=== PATIENT | male | born 1950 | race Caucasian/White ===

== ENCOUNTER 2017-10-03 20:19 | Day surgery (SDC) | payer MEDICARE ==
[~2017-10-03] VITALS: Ht 172.7 cm; Wt 97.5 kg
[~2017-10-03 20:19] MED LIST: ALBU8.5H IH; CARV6.2574 PO; CLOP75TA43 PO; GABA-549 PO; KET10 PO; MIRT-20 PO; ROSU20TA23 PO; VENL37.594 PO
--- NOTE | 2017-10-03 20:30 | ER Report ---
History and Physical Time Seen By MD: 20:28 HPI/ROS CHIEF COMPLAINT: Foreign body HISTORY OF PRESENT ILLNESS: This is a 67-year-old male who presents to the emergency department for foreign body in his esophagus. Patient states that about 2 hours ago he was having a steak dinner got a piece of steak stuck in his throat. Patient states that this is happened in the past however it has resolved on its own his never had to come to the hospital for patient is unable to swallow his spit however there is no respiratory compromise or shortness of breath at this time. Patient denies any other complaints at this time no nausea , no aches or chills or any other complaints. Patient is visiting from [place] and states he was just diagnosed with "some sort of cancer", it sounds like it could be some esophageal type of cancer that has metastasized. Patient has not started treatment. REVIEW OF SYSTEMS: Respiratory: No cough, no dyspnea. Cardiovascular: No chest pain, no palpitations. Gastrointestinal: As above. Musculoskeletal: No back pain. Allergies: Coded Allergies: No Known Drug Allergies (Unverified , 10/03/17) Home Meds Reported Medications Mirtazapine (REMERON) 30 Mg Tab.rapdis, 30 MG PO QHS 12/06/16 Carvedilol (COREG) 6.25 Mg Tablet, 6.25 MG PO BID, #10 TAB 12/06/16 Venlafaxine Hcl (EFFEXOR XR) 37.5 Mg Cap.er.24h, 37.5 MG PO QDAY 12/06/16 Rosuvastatin Calcium (CRESTOR) 20 Mg Tablet, 20 MG PO QDAY 12/06/16 Clopidogrel Bisulfate (PLAVIX) 75 Mg Tablet, 1 TAB PO QDAY, TAB 12/06/16 Albuterol Sulfate 90 Mcg/Act (PROAIR HFA 90 MCG/ACT) 8.5 Gm Hfa.aer.ad, 2 PUFF IH Q4-6H, INHALER 12/06/16 Discontinued Scripts Ketorolac Tromethamine (KETOROLAC TROMETHAMINE) 10 Mg Tab, 10 MG PO Q6H, #20 TAB Prov:MAHESH MERCADO MD 12/06/16 Gabapentin (GABAPENTIN) 300 Mg Capsule, 300 MG PO TID, #30 CAPSULE Prov:MAHESH MERCADO MD 12/06/16 Past Medical/Surgical History Patient has a past medical and surgical history of hypertension, hypercholesterolemia, COPD, wears oxygen at night, depression, no E diagnosed with esophageal and possibly metastatic cancer, stents to her legs and heart. Reviewed Nurses Notes: Yes Constitutional Vital Sign - Last 24 Hours 10/03/17 10/03/17 10/03/17 10/03/17 20:30 20:32 20:45 21:00 Temp 93.8 Pulse 82 81 82 84 Resp 14 B/P (MAP) 135/122 (126) 135/122 Pulse Ox 94 95 93 91 O2 Delivery Room Air 10/03/17 21:25 Pulse 80 Resp 16 B/P (MAP) 92/60 (71) Pulse Ox 90 O2 Delivery Room Air Physical Exam General Appearance: The patient is alert, has no immediate need for airway protection and no current signs of toxicity. Eyes: Pupils equal and round no injection. Throat: Mild redness to the throat. Unable to see any foreign body in the oropharynx. Respiratory: Chest is non tender, lungs are clear to auscultation. Cardiac: regular rate and rhythm, no murmurs, clicks or rubs. Gastrointestinal: Abdomen is soft and non tender, no masses, bowel sounds normal. Musculoskeletal: Neck: Neck is supple and non tender. Extremities have full range of motion and are non tender. Skin: No rashes or lesions. DIFFERENTIAL DIAGNOSIS: After history and physical exam differential diagnosis was considered for esophageal irritation, esophageal foreign body. Medical Decision Making EKG/Imaging Imaging [facility] PATIENT NAME: Sebastián Bose : 1950 MR: [id number] V: [id number] EXAM DATE: ORDERING PHYSICIAN: MARIUSZ PATEL TECHNOLOGIST: [place] [facility] [place] Sebastián Bose : 1950 Visit/Account:[id number] Date of Sevice: 10/03/2017 CHEST PA AND LAT HISTORY: Evaluate for foreign body. Shortness of breath. COMPARISON: None. TECHNIQUE: PA and lateral views of the chest. FINDINGS: Pulmonary: There is symmetric apical scarring or thickening. There is mild bibasilar atelectasis or scarring. No radiodense foreign body. There is no pneumothorax or pleural effusion. Cardiomediastinal: Cardiac and mediastinal silhouettes are within normal limits. Bones/soft tissues: No acute osseous abnormality. There is mild degenerative change of the spine. There is mild degenerative change of the glenohumeral joints. The visible abdomen is normal. IMPRESSION: 1. Mild bibasilar atelectasis and/or scarring. 2. No foreign body. Report Dictated By: Neha Vidales at 10/03/2017 9:33 PM Report E-Signed By: Neha Vidales at 10/03/2017 9:35 PM [id number] ED Course/Re-evaluation Clinical Indication for ER IV: IV Access ED Course The patient was admitted to a room. A history and physical were obtained. Differential diagnoses were considered. There were several attempts at an IV which were unsuccessful. The glucagon was given IM instead of IV. Glucagon unsuccessful. A two-view chest x-ray was obtained. No obvious foreign body on the x-ray. Still no respiratory complaints or shortness of breath. Patient has filled approximately 3 greg cups with saliva. I did talk to Dr. Jimenez as noted below. Patient will be going to the OR for foreign body retrieval. I did talk to the patient and the family and they are okay with the plan to go to the OR. The patient and the family had no other questions or concerns at the time of admission. 10/03/2017 9:41:[address] Jimenez the on-call surgeon regarding the patient's case Dr. Jimenez has elected to take the patient to the OR to retrieve the foreign body. 10/03/2017 9:53:02 pm here speaking with patient and family regarding the procedure. Decision to Disposition Date: Oct 03, 2017 Decision to Disposition Time: 21:44 Depart Departure Latest Vital Signs Vital Signs Date Time Temp Pulse Resp B/P (MAP) Pulse Ox O2 Delivery O2 Flow Rate FiO2 10/03/17 21:25 80 16 92/60 (71) 90 Room Air 10/03/17 20:32 93.8 Impression: Primary Impression: Esophageal foreign body Condition: Condition Unchanged Disposition: ADMIT FROM ER TO OR Problem Qualifiers Primary Impression: Esophageal foreign body Encounter type: initial encounter Qualified Codes: T18.108A - Unspecified foreign body in esophagus causing other injury, initial encounter MARIUSZ PATEL-CLARISSA Oct 03, 2017 20:30
[2017-10-03] MEDS ORDERED: GLUCAGON 1 MG KIT IV ONE (20:45)
[2017-10-03] MEDS ORDERED: GLUCAGON 1 MG KIT IM ONE (21:20)
--- NOTE | 2017-10-03 21:40 | RADIOLOGY IMAGING REPORT ---
FACILITY: [facility] - [place] PATIENT NAME: Sebastián Bose : 1950 MR: [id number] V: [id number] EXAM DATE: ORDERING PHYSICIAN: MARIUSZ PATEL TECHNOLOGIST: Location: [facility] - [place] Patient: Sebastián Bose : 1950 Visit/Account:[id number] Date of Sevice: 10/03/2017 CHEST PA AND LAT HISTORY: Evaluate for foreign body. Shortness of breath. COMPARISON: None. TECHNIQUE: PA and lateral views of the chest. FINDINGS: Pulmonary: There is symmetric apical scarring or thickening. There is mild bibasilar atelectasis or s carring. No radiodense foreign body. There is no pneumothorax or pleural effusion. Cardiomediastinal: Cardiac and mediastinal silhouettes are within normal limits. Bones/soft tissues: No acute osseous abnormality. There is mild degenerative change of the spine. The re is mild degenerative change of the glenohumeral joints. The visible abdomen is normal. IMPRESSION: 1. Mild bibasilar atelectasis and/or scarring. 2. No foreign body. Report Dictated By: Neha Vidales at 10/03/2017 9:33 PM Report E-Signed By: Neha Vidales at 10/03/2017 9:35 PM [id number]
[2017-10-03] MEDS ORDERED: NORMOSOL R SOLN(*) 1000 ML BAG 1,000 ML IV ONE (21:58)
[2017-10-03 22:01] VITALS: BP 139/107
[2017-10-03] MEDS ORDERED: LIDOCAINE MPF 1% 5 ML VIAL ONE (22:15)
[2017-10-03] MEDS ORDERED: ONDANSETRON 4 MG/2 ML VIAL ONE (22:15)
[2017-10-03] MEDS ORDERED: PROPOFOL EMUL(*) 10MG/ML 20 ML 20 ML ONE (22:15)
[2017-10-03] MEDS ORDERED: DEXAMETHASONE SOD 4 MG/ML VIAL ONE (22:15)
[2017-10-03] MEDS ORDERED: fentaNYL CITR 100 MCG/2 ML AMP ONE (22:19)
--- NOTE | 2017-10-03 22:21 | Gen Surgery History & Physical ---
History of Present Illness Chief Complaint Steak stuck in esophagus, can't swallow spit History of Present Illness Mr. Bose is a 67-year-old male who presents to the emergency department with a piece of steak stuck in his esophagus. This occurred about 2 hours prior to arrival to the ED and attempts to help it clear in the ED with Glucagon were unsuccessful for another hour. He has had food get stuck before, the last being "awhile" ago. He has not ever required medical assistance for it to clear. He was diagnosed with a metastatic cancer within the last couple of weeks with evidence of what sounds like mediastinal, cervical and left axillary lymphadenopathy. The left lymph node was biopsied and it sounds like a primary source has yet to be identified. History Home Meds Reported Medications Mirtazapine (REMERON) 30 Mg Tab.rapdis, 30 MG PO QHS 12/06/16 Carvedilol (COREG) 6.25 Mg Tablet, 6.25 MG PO BID, #10 TAB 12/06/16 Venlafaxine Hcl (EFFEXOR XR) 37.5 Mg Cap.er.24h, 37.5 MG PO QDAY 12/06/16 Rosuvastatin Calcium (CRESTOR) 20 Mg Tablet, 20 MG PO QDAY 12/06/16 Clopidogrel Bisulfate (PLAVIX) 75 Mg Tablet, 1 TAB PO QDAY, TAB 12/06/16 Albuterol Sulfate 90 Mcg/Act (PROAIR HFA 90 MCG/ACT) 8.5 Gm Hfa.aer.ad, 2 PUFF IH Q4-6H, INHALER 12/06/16 Discontinued Scripts Ketorolac Tromethamine (KETOROLAC TROMETHAMINE) 10 Mg Tab, 10 MG PO Q6H, #20 TAB Prov:MAHESH MERCADO MD 12/06/16 Gabapentin (GABAPENTIN) 300 Mg Capsule, 300 MG PO TID, #30 CAPSULE Prov:MAHESH MERCADO MD 12/06/16 Allergies: Coded Allergies: No Known Drug Allergies (Unverified , 10/03/17) Review of Systems All Systems Reviewed/Normal: Yes, Except as Noted Respiratory: Other (Oxygen at night for sleep apnea; smokes 1PPD but denies significant COPD, rare use of albuterol MDI) Gastrointestinal: Other (unable to swallow spit since event tonight) Exam General Appearance: Alert, Awake Neuro: No Gross deficits Eyes: PERRLA ENT: Moist Mucous Membranes Cardiovascular: Normal Rhythm & Peripheral Pulses Respiratory: No Respiratory Distress GI: Abd Soft and Non-Tender Musculoskeletal: No Weakness/Pain Extremities: Soft and Non Tender, Pulses (2+ DP/PT bilateral) Psych: Alert & Oriented X3, Appropriate Mood & Affect Assessment and Plan Problems: (1) Esophageal foreign body Status: Acute Assessment & Plan: His history is consistent with an acute esophageal obstruction with a piece of steak. I reviewed the procedure with him, his and his son who are all present in the ED. We also discussed the risks and benefits of the procedure. He will be taken to the endoscopy suite for a general anesthetic and EGD with foreign body removal. He has provided signed consent. Venous Thromboembolism VTE Risk Patient's VTE Risk: Low VTE Diagnostic Test 2 Days Prior to Admit: No Antithrombotics Is Pt On Any Antithrombotics?: Yes (Plavix) Problem Qualifiers (1) Esophageal foreign body: Encounter type: initial encounter Qualified Codes: T18.108A - Unspecified foreign body in esophagus causing other injury, initial encounter JAZIEL COCHRAN MD Oct 03, 2017 22:11
[2017-10-03] MEDS ORDERED: SUGAMMADEX SOD 500 MG/5 ML SDV ONE ×2 (22:34→22:37)
[2017-10-03] MEDS ORDERED: ROCURONIUM BROM 10 MG/ML 10 ML ONE (22:51)
--- NOTE | 2017-10-03 23:17 | Post Operative Note ---
Operative Note - ENT Operative Day Date: Oct 03, 2017 Time: 23:03 Physicians Surgeon: Jaziel Jimenez MD, FACS Anesthesia: GETA Diagnosis Pre-Op Diagnosis: 1) Esophageal Foreign Body with obstruction 2) Mediastinal Lymphadenopathy Post-Op Diagnosis: 1) Same 2) Same with 2 flat polyps in proximal 1/3 of esophagus Procedure Findings: Meat impacted in proximal esophagus, easily dislodged, ecchymosis at site; no masses or stricture. Z-line at 42cm 2 polyps, both <1cm in proximal 1/3 of esophagus, flat, normal appearing mucosa Procedure(s): 1) EGD with Foreign Body Removal 2) Diagnostic EGD with esophageal cold forceps biopsy Specimen Removed:(Maybe N/A): Biopsy from proximal 1/3 esophagus Complications: None Fluids Fluids: 400 in OR, 400 in ED Estimated Blood Loss: 3ml Dictated Date OP Note Dictated: Oct 03, 2017 Time OP Note Dictated: 23:16 ([id number]) JAZIEL JIMENEZ MD Oct 03, 2017 23:17
--- NOTE | 2017-10-07 14:58 | OPERATIVE REPORT 1 ---
EVENT DATE: October 03, 2017 SURGEON: Scotty Jimenez MD ANESTHESIOLOGIST: Deepak Aguilar MD ANESTHESIA: General endotracheal PREOPERATIVE DIAGNOSES 1. Esophageal foreign body. 2. Mediastinal lymphadenopathy, diagnosed previously in [place] and [place]. POSTOPERATIVE DIAGNOSES 1. Esophageal foreign body. 2. Mediastinal lymphadenopathy, diagnosed previously in [place] and [place]. 3. Two flat polyps noted in the proximal third of the esophagus. PROCEDURES 1. Esophagogastroduodenoscopy with esophageal foreign body removal. 2. Esophagogastroduodenoscopy with cold forceps biopsy of lesions in proximal third of the esophagus. ESTIMATED BLOOD LOSS 3 mL. IV FLUIDS 400 mL in the OR and 400 mL in the ED. BRIEF HISTORY The patient is a 67-year-old male who is visiting his son here in [place] from [place]. He was out for a piece of steak this evening when a piece got stuck. He presented to the emergency department approximately 2 hours later. Attempts to dislodge the foreign body were made using glucagon. The patient tried to make himself throw up, without success. I was contacted for removal. The patient states that he has had this happen a couple times before. The last time was quite a while ago. He has not had this ever require medical treatment. FINDINGS Esophageal foreign body was located in the very proximal esophagus. There are no strictures or mass to account for the occlusion. The occlusion was easily disrupted by simple manipulation. Formal EGD was also performed. The patient had some mild gastroenteritis, just based on examination. I did not perform a biopsy. The Z line was clean at 42 cm. The esophagus in general looked normal. He had 2 small, flat polyps in the proximal third of the esophagus, which could have been submucosal bumps as well. Both were less than 1 cm in diameter and were located immediately adjacent to each other. DESCRIPTION OF PROCEDURE The patient was taken to the operating room and placed in the supine position. Endotracheal intubation was performed. A scope was passed into the esophagus, with the foreign body noted immediately upon entering the esophagus. The patient had some ecchymosis in the surrounding tissue of the esophagus where the obstruction had been. I was able to pass the scope easily into his stomach. The extent of the examination extended to the second portion of the duodenum. The above findings were noted. This included retroflexion of the scope in the stomach. The scope was removed, with biopsies of the esophagus occurring with cold forceps. The scope was then completely removed. The patient was extubated in the operating room and taken to the recovery room in good condition. He tolerated the procedure well. SPECIMENS Biopsy of polyps, proximal third of the esophagus. REYMUNDO
== END 2017-10-03 23:33 | disposition home or self-care (01) ==
LOC: ER 20:30 → OR 21:40
PROVIDERS: ATTEND Surgery
DX: T18.128A Food in esophagus causing other injury, initial encounter (principal); R59.1 Generalized enlarged lymph nodes
CPT/HCPCS: 43239; 43247; 71020; 88305; 88313; 94640; 99285; J1100; J1610; J2001; J2405; J2704; J3010

== ENCOUNTER → 2019-04-05 | Outpatient (CLI) | payer MEDICARE ==
[~2019-04-05] MED LIST changes: +BICA50TA41 PO; +CAR6.25 PO; +CHOL500016 PO; +CLOP75TA PO; +FLUO-177 PO; +HYDR-385 PO; +HYDR-627 PO; +MIRT-25 PO; +ONDA-2 PO; +PROM-110 PO; -ROSU20TA23 PO; +ROSU20TA24 PO; +TAMS0.4C25 PO; +VENL75TA12 PO; +[UNRECOGNIZED DRUG - CODE] PO
--- NOTE | 2019-04-05 12:25 | RADIOLOGY IMAGING REPORT ---
FACILITY: [facility] PATIENT NAME: Sebastián Bose : 1950 MR: [id number] V: [id number] EXAM DATE: ORDERING PHYSICIAN: TRAVIS IZQUIERDO TECHNOLOGIST: [facility]: [facility] [place] Patient: Sebastián Bose : 1950 Visit/Account:[id number] Date of Sevice: 04/05/2019 CHEST PA LAT INDICATION: Cough, history of prostate cancer and lymphoma COMPARISON: 10/03/2017 FINDINGS: Heart size within normal limits. There is a right-sided Mediport in place with catheter tip at the atrial caval junction. There is no focal infiltrate or lobar consolidation. There is a new 7 mm nodular density seen withi n the right upper lobe. There is no pneumothorax or pleural effusion. IMPRESSION: 1. No acute cardiopulmonary process. 2. New 7 mm soft tissue density is noted within the right upper lobe. In a patient with a history o f malignancy, recommend nonemergent CT chest for further characterization Report Dictated By: Trevor Carrion at 04/05/2019 12:16 PM Report E-Signed By: Trevor Carrion at 04/05/2019 12:19 PM WSN:[id number]
== END ==
LOC: RAD 11:35
PROVIDERS: ATTEND Nurse Practitioner
DX: R91.1 Solitary pulmonary nodule (principal)
CPT/HCPCS: 71046

== ENCOUNTER → 2019-06-02 | Outpatient (CLI) | payer MEDICARE ==
[~2019-06-02] MED LIST changes: +DEN120I SUBQ; +DULO30CA35 PO; +DULO60CA56 PO; +GADOBENATE 529MG/1ML 15ML VIAL IVP ONE; +NS(*) 0.9% 50 ML BAG 50 ML ONE; +OXYC-823 PO; +OXYC9CAP; +UMEC1DIS INH; +oxycodone
--- NOTE | 2019-06-02 09:54 | RADIOLOGY IMAGING REPORT ---
FACILITY: [facility] PATIENT NAME: Sebastián Bose : 1950 MR: [id number] V: [id number] EXAM DATE: ORDERING PHYSICIAN: TRAVIS IZQUIERDO TECHNOLOGIST: Location: [facility] Patient: Sebastián Bose : 1950 Visit/Account:[id number] Date of Sevice: 06/02/2019 MR ABDOMEN W & W/O CON COMPARISON: CT abdomen with and without contrast 05/10/2019 HISTORY: History of stage IV prostate cancer with liver lesions on CT. TECHNIQUE: Pre and post contrast multiplanar MRI of the abdomen utilizing T1 weighted and fluid sens itive sequences. Diffusion-weighted imaging was performed. CONTRAST: 15 mL MultiHance intravenously MRI ABDOMEN FINDINGS: LIVER: Normal morphology and hepatic parenchymal signal intensity. There are several bilobar there is lesions with intermediate T2 signal, restricted diffusion and low level homogeneous internal enhan cement. These are not typical of the benign primary liver lesions and a remains suspicious for metas tases. Largest right lobe lesion is in segment seven (series 17 image 16) and measures 1.5 x 2 0.2 m L. The largest left lobe lesion is in segment three and would probably be amenable to ultrasound-travis ded or CT-guided biopsy if necessary, measuring 1.1 x 1.5 cm on series 17 image 28. There are at cleo st four lesions identified on the postcontrast scans but at least 10 are seen on the diffusion-weight ed images. BILIARY: Unremarkable gallbladder. No intra-or extrahepatic bile duct dilatat ion. SPLEEN: Mildly enlarged at 15.2 cm craniocaudally. PANCREAS: Two small to characterize 3 mm cystic lesion arising from the nondilated main duct in the pancreatic head/neck junction, seen on a single image, series 2 image 19. This could be dilated side branch radicle or a tiny cystic lesion. Otherwise negative. ADRENALS: Unremarkable. KIDNEYS: Symmetric enhancement with benign cysts bilaterally. GI/MESENTERY: Unremarkable by MRI. VASCULAR: Moderate atherosclerotic disease, abdominal aorta. Fusiform abdominal aortic aneurysm, in completely imaged but measuring 3.1 x 3.4 cm maximally at the imaged levels, measuring up to 3.6 cm o n the prior. Moderate amount of eccentric mural plaque/thrombus along the wall of the aneurysm. LYMPH NODES: No significantly enlarged lymph nodes. BONES: Suboptimally assessed by scan protocol. 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 No pathologic fractures. OTHER: Negative. IMPRESSION: 1. Multiple bilobar liver lesions which are most consistent with hepatic metastases. The largest le ft lobe lesion in segment III would probably be amenable to percutaneous image guided biopsy if marislo ed. 2. Osteoblastic bone metastases, not as conspicuous today because of scan protocol but considered st able. 3. Mild splenomegaly. No adenopathy. 4. Renal cysts. 5. Incompletely imaged AAA. 3 mm too small to characterize cystic lesion, pancreatic head/neck which could represent a dilated si de branch radicle or a tiny cystic lesion. Based on recommendations from the ACR, single 2 year fol low-up imaging with pancreas protocol CT or MRI (with and without contrast), is recommended to demons trate stability. If there is no interval change, no further surveillance is recommended. Reference: ACR. Management of Incidental Pancreatic Cysts: A White Paper of the ACR Incidental Findi ngs Committee DIMAS. Feb, 2017. Report Dictated By: Scotty West at 06/02/2019 9:27 AM Report E-Signed By: Scotty West at 06/02/2019 9:45 AM WSN:[id number]
== END ==
LOC: MRI 00:44
PROVIDERS: ATTEND Nurse Practitioner
DX: K76.9 Liver disease, unspecified (principal); C79.51 Secondary malignant neoplasm of bone; R16.1 Splenomegaly, not elsewhere classified; N28.1 Cyst of kidney, acquired
CPT/HCPCS: 74183; A9577; J7050